=== PATIENT | female | born 1960 | race Caucasian/White ===

== ENCOUNTER 2025-02-02 15:37 | Inpatient (IN) | payer OTHER, SELFPAY ==
[2025-02-02 15:47] VITALS: BP 152/90; PULSE 79; RESP 20; TEMP 36.1; O2SAT 98; BMI 39.8
--- NOTE | 2025-02-02 16:51 | CRLHL7_ITS ---
For Patients: As a result of the Cures Act, medical imaging exams and procedure reports are released immediately into your electronic medical record. You may view this report before your referring provider. If you have questions, please contact your health care provider. INDICATION: Lower chest pain TECHNIQUE: Chest radiograph 1 view COMPARISON: None FINDINGS: Mediastinum: The mediastinum is normal in appearance. The cardiac silhouette is mildly enlarged but may be accentuated by the portable technique. Lung: Both lungs are unremarkable in appearance. No sign of pleural effusion seen. No pneumothorax is identified. Bone and Soft tissue: Unremarkable for age. IMPRESSION: 1. The cardiac silhouette is mildly enlarged but may be accentuated by the portable technique. Dictated by Jose Weller MD @ 02/02/2025 6:53:51 PM Dictated by: Jose Weller MD @ 02/02/2025 18:53:53 (Electronically Signed)
--- NOTE | 2025-02-02 16:56 | ED.GENADULT ---
HPI - General Adult General Date Seen: 02/02/25 Chief complaint: Abdominal Pain Stated complaint: Back pain, abdominal pain and burning sensation Time Seen by Provider: 02/02/25 16:36 History of Present Illness HPI narrative: Patient is a 64-year-old woman here for evaluation of an episode of epigastric pain/heartburn. She had eaten lunch just previous to that, she had a hard boiled egg, some cheese and a pickle. She says she developed hot flashes, which she remembers having when she went through menopause but has not had a lot of trouble with them more recently. She had this sharp pain in her epigastrium associated with a sensation of heartburn which lasted maybe a minute or so and then resolved. She said she did have a couple of recurrences which were mild but does not have any symptoms right now. She does have a history of problems with heartburn last year but she felt like things got better when she stopped eating tomatoes. She has had a little bit more trouble this summer but not significant. She has not had any exertional chest symptoms of any kind. She felt a little bit nauseated when she had this episode but no significant shortness of breath, no lightheadedness or syncope. She has otherwise been feeling well. She has not been to a doctor since 2017, she does not like to take medicines, was careful to tell is that she refuses any vaccinations. She does not smoke or drink. She does note that she takes a kelp supplement because she thought perhaps her thyroid was out of whack, she has not ever had thyroid studies checked however. Related Data Home Medications ?Medication ?Instructions ?Recorded ?Confirmed No Known Home Medications 02/02/25 02/02/25 Allergies Allergy/AdvReac Type Severity Reaction Status Date / Time No Known Drug Allergies Allergy Verified 02/02/25 20:32 Review of Systems Status of ROS: Reports: 10 or more systems reviewed and unremarkable except as noted in History and below PFSH PFS Social History Smoking Status: Never smoker How often do you have a drink containing alcohol: never AUDIT-C Alcohol total score: 0 Non-prescribed substance use: denies use Exam Narrative: Exam Narrative: Vital signs reviewed In general, alert, nontoxic med age woman. She is breathing easily. Head: Normocephalic, atraumatic. Eyes: Sclera clear. Pupils equal and reactive. ENT: Mucous membranes moist. Neck: Supple without adenopathy. Heart: Regular rate and rhythm without murmur. Lungs: Clear. No increased work of breathing, crackles or wheezes. Abdomen: Abdomen is soft, nondistended. She has a little bit of epigastric tenderness, a little bit of upper abdominal tenderness in general left greater than right. No rebound guarding or rigidity. Extremities: Well perfused, pulses intact. No significant edema. Neurologic: Alert, conversant. Speech fluent, face symmetric. Moves all extremities equally. Skin: Warm, dry well perfused. Affect: Normal. Const: Vital Signs, click to edit/add: Vital Signs - 24 hr 02/02/25 15:47 02/02/25 20:40 Temperature 96.9 F L 97.2 F L Pulse Rate [Pulse Oximeter] 79 70 Respiratory Rate 20 20 Blood Pressure [Ri ght Upper Arm] 152/90 H 160/97 H Pulse Oximetry 98 99 Oxygen Delivery Me thod Room Air Room Air Course Course ED Course: Patient presents with a brief episode of epigastric pain and a sensation of heartburn, this was self limited and is now gone. Somewhat concerning as she does not relate your over go to the doctor, has not sought care for anything in 8 years. However, exam is benign at this time, certainly no significant abdominal findings. Diagnostic considerations would include biliary colic, cholecystitis, pancreatitis, gastric ulcer or reflux, esophageal spasm, pulmonary embolism, acute coronary syndrome or angina, among others. Dissection seems less likely given the brief nature and resolution of symptoms. Blood pressure is minimally elevated here at 152/90. Other vital signs are normal. Laboratory evaluation here was most notable for elevated transaminases with an AST of 293 and an ALT of 153. Her other LFTs were normal. Troponin is negative, EKG by my review showed a sinus rhythm, ventricular rate of 71, no acute ST segment changes. No S1 Q 3 T3. Troponin is negative. D-dimer was minimally elevated at .81, however of her workup 1 along my suspicion for PE decreased as we found other abnormalities making other diagnoses more likely. I did a chest x-ray, by my review this is negative for any acute findings. Based on the LFTs, I recommended to her that we do an ultrasound to evaluate for possible gallbladder findings. She does take this can help supplement which can be associated with some liver toxicity but in the absence of any other findings suggestive of toxicity, I recommended that we evaluate her gallbladder. Ultrasound was read by Radiology as somewhat indeterminate, they felt that there was an area where the gallbladder wall might be thick, no obvious stones and she did not have a sonographic Montesinos's. As a result they recommended CT scanning to get a better look. Discussed this with the patient and she agreed to proceed with that. An IV was placed and she had a CT scan of the abdomen with contrast. I reviewed these images. She has marked thickening of the gallbladder wall up to about 8 mm. Radiology read this as significant gallbladder wall edema, they do visualize a stone. They did not feel she had other significant findings on CT aside from a somewhat prominent uterus, recommending outpatient ultrasound to further evaluate. I discussed all these findings with her. I also discussed her case with Dr. Mata. Based on her marked gallbladder edema, she recommended admission to the hospital for antibiotics overnight and then Dr. Mata will see her in the morning. After discussion with the patient, she is willing to do that. She is not sure how she feels about surgery yet, but told her she can certainly discuss that with surgery tomorrow and that ultimately she is in charge of making that decision. I ordered Zosyn for her. I also reviewed with her that the CT scan showed some prominence of the uterus and that an outpatient ultrasound was recommended. She does have a primary care doctor, this person is up in [place] and she does not even know if they are still at that clinic as she has not been seen for many years. Discussed with her though that she will need to follow up with someone regarding the uterine findings to have a ultrasound set up. Plan will be to discuss with the overnight hospitalist for admission to the hospitalist service. Vital Signs Vital signs: Initial Vital Signs Temperature 96.9 F L 02/02/25 15:47 Temperature Source Temporal Artery Scan 02/02/25 15:47 Pulse Rate 79 02/02/25 15:47 Respiratory Rate 20 02/02/25 15:47 Blood Pressure 152/90 H 02/02/25 15:47 Blood Pressure Mean 110 H 02/02/25 15:47 Blood Pressure Position Sitting 02/02/25 15:47 Pulse Oximetry 98 02/02/25 15:47 Oxygen Delivery Method Room Air 02/02/25 15:47 Vital Signs Temperature 96.9 F L 02/02/25 15:47 Pulse Rate 79 02/02/25 15:47 Respiratory Rate 20 02/02/25 15:47 Blood Pressure 152/90 H 02/02/25 15:47 Pulse Oximetry 98 02/02/25 15:47 Oxygen Delivery Method Room Air 02/02/25 15:47 Temperature 97.2 F L 02/02/25 20:40 Pulse Rate 70 02/02/25 20:40 Respiratory Rate 20 02/02/25 20:40 Blood Pressure 160/97 H 02/02/25 20:40 Pulse Oximetry 99 02/02/25 20:40 Oxygen Delivery Method Room Air 02/02/25 20:40 Medications Administered Medications: Discontinued Medications Generic Name Dose Route Start Last Admin Trade Name Freq PRN Reason Stop Dose Admin Sodium Chloride 500 mls @ 500 mls/hr 02/02/25 19:43 02/02/25 21:57 0.9 % Sodium Chloride 500 Ml IV 02/02/25 20:42 Infused .Q1H ONE Infusion Medical Decision Making Lab Data Labs: Lab Results 02/02/25 Range/Units 17:04 WBC 8.69 (4.50-11.00) K/uL RBC 4.58 (4.00-5.20) m/uL Hgb 13.4 (12.0-16.0) gm/dL Hct 40.7 (33.0-51.0) % MCV 89 (80-100) fL MCH 29 (26-34) pg MCHC 33 (32-36) gm/dL RDW Coeff of Paty 13.2 (11.5-15.5) % Plt Count 200 (140-440) K/uL Neut % (Auto) 80.6 H (42.0-72.0) % Lymph % (Auto) 12.5 L (20-44) % Boundary % (Auto) 6.1 (0.0-11.0) % Eos % (Auto) 0.5 (0.0-7.0) % Baso % (Auto) 0.2 (0.0-3.0) % Neut # (Auto) 7.00 (1.7-7.0) K/uL Lymph # (Auto) 1.10 (0.90-2.90) K/uL Boundary # (Auto) 0.50 (0.00-0.90) K/UL Eos # (Auto) 0.04 (0.00-0.50) K/uL Baso # (Auto) 0.02 (0.00-0.30) K/uL Abs Immat Gran (auto) 0.01 (0.00-0.30) K/uL Imm/Tot Granulo (auto) 0.1 % D-Dimer Quant (PE/DVT) 0.81 H (0.00-0.50) ug/ml Sodium 140 (135-149) mmol/L Potassium 4.4 (3.6-5.1) mmol/L Chloride 106 (96-114) mmol/L Carbon Dioxide 27 (20-32) mmol/L Anion Gap 7 (7-15) mEq/L BUN 17 (7-30) mg/dL Creatinine 0.7 (0.5-1.5) mg/dL Estimated Creat Clear 58.84 Estimated GFR 98 ml/min Glucose 121 H (60-115) mg/dL Calcium 10.2 (8.4-10.6) mg/dL Total Bilirubin 1.1 (0.1-1.5) mg/dL Direct Bilirubin 0.5 (0.0-0.5) mg/dL AST 293 H (12-35) U/L ALT 153 H (4-35) U/L Alkaline Phosphatase 98 (40-150) U/L Troponin I < 0.01 (0.01-0.04) ng/mL Total Protein 7.4 (6.0-8.3) g/dL Albumin 4.7 (3.3-5.0) g/dL Lipase 99 (23-300) U/L TSH 1.050 (0.270-4.200) uIU/mL Discharge Plan Discharge Clinical Impression: Cholecystitis Patient Disposition: Admitted As Observation Condition: Stable
[2025-02-02 17:09] LABS: Hematocrit 40.7 % (33.0-51.0); Hemoglobin* 13.4 gm/dL (12.0-16.0); Immature Granulocytes Abs Auto 0.01 K/uL (0.00-0.30); Immature Granulocytes Pct Auto 0.1 %; Mean Corpuscular HGB Conc 33 gm/dL (32-36); Mean Corpuscular Hemoglobin 29 pg (26-34); Mean Corpuscular Volume 89 fL (80-100); RDW Coefficient of Variation % 13.2 % (11.5-15.5); Red Blood Count 4.58 m/uL (4.00-5.20); White Blood Count* 8.69 K/uL (4.50-11.00)
[2025-02-02 17:16] LABS: Lymphocytes Absolute Auto 1.10 K/uL (0.90-2.90); Slide Review Reflex No
[2025-02-02 17:25] LABS: Albumin* 4.7 g/dL (3.3-5.0); Chloride* 106 mmol/L (96-114); Potassium* 4.4 mmol/L (3.6-5.1); Sodium* 140 mmol/L (135-149)
[2025-02-02 17:27] LABS: Alanine Aminotransferase* 153 U/L (4-35); Aspartate Amino Transferase* 293 U/L (12-35); Blood Urea Nitrogen* 17 mg/dL (7-30); Creatinine* 0.7 mg/dL (0.5-1.5); Est. Creatinine Clearance* 58.84; Estimated Glomerular Filt Rate 98 ml/min
[2025-02-02 17:28] LABS: Alkaline Phosphatase* 98 U/L (40-150); Anion Gap 7 mEq/L (7-15); Bilirubin Direct* 0.5 mg/dL (0.0-0.5); Bilirubin Total* 1.1 mg/dL (0.1-1.5); Calcium* 10.2 mg/dL (8.4-10.6); Carbon Dioxide* 27 mmol/L (20-32); D Dimer Quantitative* 0.81 ug/ml (0.00-0.50); Glucose* 121 mg/dL (60-115); Total Protein* 7.4 g/dL (6.0-8.3)
[2025-02-02 18:01] LABS: TSH With Reflex to FT4* 1.050 uIU/mL (0.270-4.200)
--- NOTE | 2025-02-02 18:11 | CRLHL7_ITS ---
For Patients: As a result of the Century Cures Act, medical imaging exams and procedure reports are released immediately into your electronic medical record. You may view this report before your referring provider. If you have questions, please contact your health care provider. INDICATION: Epigastric pain. Elevated liver function tests. TECHNIQUE: Ultrasound abdomen limited. Sonographic images of the right upper quadrant were obtained using conklin-scale and color Doppler images. COMPARISON: None. FINDINGS: Liver: The liver is grossly normal in size, echotexture and echogenicity. Some of the images demonstrate possible surface nodularity which could reflect underlying cirrhosis. No definite liver lesion. Antegrade flow within the visualized main portal vein. Gallbladder: The gallbladder is partially obscured and partially distended. The patient is reportedly not NPO. There is some thickening of the anterior wall of the gallbladder with shadowing. The gallbladder wall could measure 10 millimeters. No definite stone. Reportedly negative sonographic Montesinos sign as per the performing keno terminal operator. Common bile duct: 4 mm. Pancreas: Unremarkable. Right kidney: Normal in size. Normal echotexture and cortex. No suspicious masses, stones, or hydronephrosis. Vasculature: Proximal abdominal aorta: Normal in caliber. IVC: Patent. Main portal vein: Patent. Ascites: None visualized. IMPRESSION: 1. The patient was reportedly not NPO for the examination. This limits evaluation of the gallbladder. Poorly visualized gallbladder with evidence of possible significant abnormal thickening. No sonographic Montesinos`s sign to suggest acute cholecystitis. A follow-up CT of the abdomen and pelvis may be performed to better evaluate the findings. 2. Possible liver surface nodularity on some of the images. This could reflect underlying cirrhosis. Clinical correlation is recommended. Dictated by Kenrick Duggan MD @ 02/02/2025 7:32:06 PM (Electronically Signed)
--- NOTE | 2025-02-02 19:43 | CRLHL7_ITS ---
For Patients: As a result of the Century Cures Act, medical imaging exams and procedure reports are released immediately into your electronic medical record. You may view this report before your referring provider. If you have questions, please contact your health care provider. INDICATION: Abnormal gallbladder on ultrasound. Elevated liver function tests. TECHNIQUE: CT abdomen and pelvis acquired with 129 cc Omnipaque 350 IV contrast. COMPARISON: Ultrasound on the same day. FINDINGS: Visualized lung bases are clear. The liver is grossly in normal size. No definite liver lesion is seen. The gallbladder is partially distended. There is evidence of significant gallbladder wall edema. Apparent stone is present. No free air or organized drainable fluid collection. No gross biliary ductal dilatation. The spleen is normal in size. A 9 millimeter hyperdense lesion within the spleen is too small to further characterize (27). This likely represents a hemangioma. The pancreas is unremarkable. The adrenal glands are normal. The kidneys are unremarkable, no hydronephrosis. The urinary bladder is partially distended mild thickening, likely due to under distention. The colon is unremarkable. Nondilated partially obscured appendix. The small bowel is unremarkable. The stomach is partially distended. No free air. No ascites. Subcentimeter retroperitoneal lymph nodes are indeterminate. Prominent inguinal lymph nodes are also noted. Prominent uterine endometrium is noted. Portal vein is patent. Aorta is normal in caliber. Bone windows demonstrate no suspicious lytic or sclerotic lesion. No fracture. IMPRESSION: 1. Partially distended gallbladder with evidence of severe gallbladder wall edema. This may represent cholecystitis. Recommend correlation with right upper quadrant pain and tenderness on examination. Follow-up HIDA scan may be performed for further evaluation. 2. Prominent uterine endometrium. Follow-up nonemergent outpatient pelvic ultrasound is recommended to evaluate for possible abnormal thickening. Please note that all CT scans at this facility use dose modulation, iterative reconstruction, and/or weight-based dosing when appropriate to reduce radiation dose to as low as reasonably achievable. Dictated by Kenrick Duggan MD @ 02/02/2025 8:59:27 PM (Electronically Signed)
[2025-02-02] MEDS: 0.9 % SODIUM CHLORIDE 500 ML 500 ML IV (20:39)
[2025-02-02 20:40] VITALS: BP 160/97; PULSE 70; RESP 20; TEMP 36.2; O2SAT 99
[2025-02-02] MEDS: PIPERACILLIN/TAZOBACTAM 3.375 GM in 0.9 % SODIUM CHLORIDE Mini-bag 100 ML IVPB (23:48)
[2025-02-03 00:54] VITALS: BP 132/79; PULSE 63; RESP 20; O2SAT 97
[2025-02-03 01:03] VITALS: BP 128/107; PULSE 71; RESP 16; TEMP 36.7; O2SAT 98
[2025-02-03] MEDS: 5 % DEXTROSE/0.9% SOD CHLORIDE 1,000 ML 75 ML IV (02:11)
[2025-02-03] MEDS: PANTOPRAZOLE SODIUM 40 MG INJ IVP (02:13)
[2025-02-03 03:00] VITALS: BP 153/73; PULSE 62; RESP 16; TEMP 36.4; O2SAT 99
--- NOTE | 2025-02-03 05:13 | PC.NURSE ---
End of shift report: Pt admitted to the floor at 0103. VSS. Afebrile. On RA. Denies pain and nausea. Bowel sounds are active. Pt reports passing gas. Pt is NPO. Pt is ind in room, call light within reach.?
--- NOTE | 2025-02-03 05:14 | W.PM.TELEH&P ---
Telehealth- H&P: HPI History of Present Illness Time Seen by Provider: 01:20 Date Seen: 02/03/25 Chief complaint: Back pain, abdominal pain and burning sensation Narrative: Shena Faith is seen as an Interactive Telehealth visit. Shena Faith is a 64 year old female who is Here in the hospital with a chief complaint of acute abdominal pain at the right upper quadrant and epigastric area. History of present illness: Patient tells me that in the last few months she has been having some epigastric pain and feeling of fullness. She cannot related to food intake. Pain became more severe on the day of the admission and she became nauseated. She decided to come to the ER. She is not known to have any chronic medical illness but she says she may have elevated blood pressure. She has not seen her primary care doctor more than 2 years. She does appreciate using supplements and natural substances to help manage some of her physical ailments. Tonight when she came to the ER she was evaluated. While in the ER she was found to have inflamed gallbladder with gallstones. She was given IV Rocephin. She was also started on some IV fluids. For pain she will receive Dilaudid. On the rest of the lab test WBC was normal but transaminases were elevated. On talking to her at the bedside she was awake and alert. I told her our plan to admit her, keep her n.p.o., refer her to the general surgeon who most likely will recommend cholecystectomy, and to monitor her blood pressure and continue her on antibiotics. She was agreeable with this plan. During this time she told me that she may have elevated blood pressure. But she is not known to have diabetes. She has never had a heart attack and she has never had a stroke. She does not take any prescription medications. Review of systems: In the last few days she has had no fever except that related to this cholecystitis, may have had some chills because of this, no headache, no dizziness, no loss of consciousness, no runny nose, no sore throat, no postnasal drip, no cough, no phlegm, no shortness of breath at rest or with exertion, no pain with urination, no blood in the stool, no blood in the urine, no skin rash no skin ulcers. Past medical history was reviewed 1. She may have elevated blood pressure she has not been to a doctor's office in 3 years. Personal social history: Patient is , she lives with her and her children. 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 She does not smoke. She does not drink alcoholic beverages. She does not use prohibited drugs. She does use homeopathic drugs made from natural plants. Family medical history was reviewed CODE STATUS: As discussed with her she wants to be full code. Telehealth visit: Today's history and physical is via interactive telehealth by Shae Navarro MD. The patient is located [facility]. Physician is located at [facility]. Nursing staff assisted in the patient's exam. The visit being done today meets criteria for a telehealth visit and the patient or patient's parent/guardian is aware the visit is a telehealth visit. Camera start time 11902-03-2025 Camera end time 14902-03-2025 [facility] Social History What is your current living situation?: I presently have a place to live Problems where you live: no known problems Problems where you live details: n/a In the past 12 months, utilities in danger of being shut off: no In past 12 months, lack of transportation kept you from medical appts, meetings, work, or getting things needed for daily living: no In the past 12 mos, have been you worried that your food would run out before you had money to buy more?: never true In the past 12 mos, the food you bought just didn't last and you didn't have money to buy more?: never true Highest level of school completed/degree received: high school graduate Smoking Status: Never smoker Do you use any of these nicotine containing products: None Second hand tobacco smoke exposure: No How often do you have a drink containing alcohol: never How often do you have six or more drinks on one occasion: Never AUDIT-C Alcohol total score: 0 Non-prescribed substance use: denies use Caffeine: Yes How often does anyone, including family, friends and others, physically hurt you: never How often does anyone, including family, friends and others, insult or talk down to you: never How often does anyone, including family, friends and others, threaten you with harm: never How often does anyone, including family, friends and others, scream or curse at you: never Meds Home Medications and Allergies Home Medications ?Medication ?Instructions ?Recorded ?Confirmed ?Type No Known Home Medications 02/02/25 02/02/25 History Allergies Allergy/AdvReac Type Severity Reaction Status Date / Time No Known Drug Allergies Allergy Verified 02/02/25 20:32 Exam Narrative Exam Narrative: Telehealth visit: Today's history and physical is via interactive telehealth by Shae Navarro MD. The patient is located [facility]. Physician is located at [facility]. Nursing staff assisted in the patient's exam. The visit being done today meets criteria for a telehealth visit and the patient or patient's parent/guardian is aware the visit is a telehealth visit. Camera start time 11902-03-2025 Camera end time 14902-03-2025 Physical Exam GENERAL: ?vital signs reviewed, well developed and nourished, Pain at the right upper quadrant and epigastric area is controlled at this time. HEENT: pupils are equal round and reactive to light, extraocular movements are grossly within normal limits and oral mucosa is moist. NECK: Supple without lymphadenopathy or thyromegaly according to nursing staff examination observation HEART: Regular rate and rhythm without any rubs, murmurs, or gallops. LUNGS: Clear to auscultation bilaterally with good air movement throughout ABDOMEN: Observation from nurse assisted exam, abdomen appears soft, nontender, and nondistended with Positive bowel sounds noted.At this time her abdominal pain is not too evident probably because she did receive some medications in the ER. EXTREMITIES: Strength and sensation is observed to be grossly within normal limits in the upper and lower extremities.? No focal strength deficit is observed. SKIN:? Observed warm and dry with color normal Const Vital Signs, click to edit/add: Vital Signs - 24 hr 02/02/25 15:47 02/02/25 20:40 02/03/25 00:54 Temperature 96.9 F L 97.2 F L Pulse Rate [Left Pulse Oximeter] Pulse Rate [Pulse Oximeter] 79 70 63 Respiratory Rate 20 20 20 Blood Pressure [Right Arm] Blood Pressure [Right Upper Arm] 152/90 H 160/97 H 132/79 Pulse Oximetry 98 99 97 Oxygen Delivery Method Room Air Room Air Room Air 02/03/25 01:03 02/03/25 01:03 02/03/25 03:00 Temperature 98.1 F 97.6 F Pulse Rate [Left Pulse Oximeter] 71 62 Pulse Rate [Pulse Oximeter] Respiratory Rate 16 16 16 Blood Pressure [Right Arm] 128/107 H 153/73 H Blood Pressure [Right Upper Arm] Pulse Oximetry 98 98 99 Oxygen Delivery Method Room Air Room Air Room Air Hospitalist - H&P: Result Labs Labs: Short CBC 02/02/25 Range/Units 17:04 WBC 8.69 (4.50-11.00) K/uL Hgb 13.4 (12.0-16.0) gm/dL Hct 40.7 (33.0-51.0) % Plt Count 200 (140-440) K/uL BMP 02/02/25 17:04 Sodium 140 Potassium 4.4 Chloride 106 Carbon Dioxide 27 BUN 17 Creatinine 0.7 Glucose 121 H Calcium 10.2 Cardiac Enzymes 02/02/25 Range/Units 17:04 Troponin I < 0.01 (0.01-0.04) ng/mL Liver Function 02/02/25 Range/Units 17:04 Total Bilirubin 1.1 (0.1-1.5) mg/dL Direct Bilirubin 0.5 (0.0-0.5) mg/dL AST 293 H (12-35) U/L ALT 153 H (4-35) U/L Alkaline Phosphatase 98 (40-150) U/L Albumin 4.7 (3.3-5.0) g/dL Assessment and Plan Assessment and plan (1) Acute cholecystitis due to biliary calculus: Status: Acute (2) Elevated BP without diagnosis of hypertension: Status: Acute Plan 1. Admit as inpatient 2. For pain she may have Dilaudid 3. Start on Protonix 4. Continue empiric antibiotics Zosyn 5. ER doctor spoke with general surgeon on-call and I put a consult in 6. Keep n.p.o. 7. Start D5 normal saline 75 mL/h while n.p.o. 8. Monitor blood pressure if needed beta-blockers may be ideal for her 9. CODE STATUS full code 10. DVT prophylaxis SCDs. Anticipating surgery no anticoagulants Telehealth visit: Today's history and physical is via interactive telehealth by Shae Navarro MD. The patient is located [facility]. Physician is located at [facility]. Nursing staff assisted in the patient's exam. The visit being done today meets criteria for a telehealth visit and the patient or patient's parent/guardian is aware the visit is a telehealth visit. Camera start time 11902-03-2025 Camera end time 14902-03-2025 Telehealth: Statement Statement Telehealth Visit: Today's History and Physical is provided via interactive telehealth by Shae Navarro MD.? Patient is located at [facility].? Provider is located at [facility].? Nursing staff assisted with the patient's exam. The visit being done today meets criteria for a telehealth visit and the patient or patient?s parent/guardian is aware the visit is a telehealth visit.
[2025-02-03] MEDS: PIPERACILLIN/TAZOBACTAM 3.375 GM in 0.9 % SODIUM CHLORIDE Mini-bag 100 ML IVPB (06:07)
[2025-02-03 08:00] VITALS: BP 144/84; PULSE 64; RESP 18; TEMP 36.4; O2SAT 99
--- NOTE | 2025-02-03 09:17 | P.GSCN_ITS ---
History of Present Illness Consult details Date Seen: 02/03/25 Consult date: 02/03/25 Narrative: Patient presented to the emergency department for persistent right-sided abdominal pain and epigastric discomfort. The pain started yesterday afternoon after eating. She has never had pain like this before. She does suffer from reflux, which she controls by avoiding tomatoes and other foods that trigger it. The pain did improve overnight and she notices only a dull ache on the right side. She has never had abdominal surgery before. Patient has not been to the doctor since 2017. Review of Systems Status of ROS: Reports: 10 or more systems reviewed and unremarkable except as noted in History and below [facility] Medical History (Updated 02/03/25 @ 09:03 by Kitty Stallworth RN) Cholecystitis ?K81.9 - Cholecystitis, unspecified (ICD-10) Acute cholecystitis due to biliary calculus ?K80.00 - Calculus of gallbladder with acute cholecystitis without obstruction (ICD-10) Elevated BP without diagnosis of hypertension ?R03.0 - Elevated blood-pressure reading, without diagnosis of hypertension (ICD-10) Social History What is your current living situation?: I presently have a place to live Problems where you live: no known problems Problems where you live details: n/a In the past 12 months, utilities in danger of being shut off: no In past 12 months, lack of transportation kept you from medical appts, meetings, work, or getting things needed for daily living: no In the past 12 mos, have been you worried that your food would run out before you had money to buy more?: never true In the past 12 mos, the food you bought just didn't last and you didn't have money to buy more?: never true Highest level of school completed/degree received: high school graduate Smoking Status: Never smoker Do you use any of these nicotine containing products: None Second hand tobacco smoke exposure: No How often do you have a drink containing alcohol: never How often do you have six or more drinks on one occasion: Never AUDIT-C Alcohol total score: 0 Non-prescribed substance use: denies use Caffeine: Yes How often does anyone, including family, friends and others, physically hurt you : never How often does anyone, including family, friends and others, insult or talk down to you: never How often does anyone, including family, friends and others, threaten you with harm: never How often does anyone, including family, friends and others, scream or curse at you: never Meds Home Medications and Allergies Home Medications ?Medication ?Instructions ?Recorded ?Confirmed ?Type No Known Home Medications 02/02/25 0703/02 History Allergies Allergy/AdvReac Type Severity Reaction Status Date / Time No Known Drug Allergies Allergy Verified 02/02/25 20:32 Exam Narrative: Exam Narrative: General: Alert and oriented, no acute distress Respiratory: Equal breath rise bilaterally, maintained on room air CV: Well perfused Abdomen: Soft, mild tenderness on the right side with deep palpation, no guarding or rebound. Const: Vital Signs, click to edit/add: Vital Signs - 24 hr 02/02/25 15:47 02/02/25 20:40 02/03/25 00:54 Temperature 96.9 F L 97.2 F L Pulse Rate [Left P ulse Oximeter] Pulse Rate [Pulse Oximeter] 79 70 63 Respiratory Rate 20 20 20 Blood Pressure [Ri ght Arm] Blood Pressure [Ri ght Upper Arm] 152/90 H 160/97 H 132/79 Pulse Oximetry 98 99 97 Oxygen Delivery Me thod Room Air Room Air Room Air 02/03/25 01:03 02/03/25 01:03 02/03/25 03:00 Temperature 98.1 F 97.6 F Pulse Rate [Left P ulse Oximeter] 71 62 Pulse Rate [Pulse Oximeter] Respiratory Rate 16 16 16 Blood Pressure [Ri ght Arm] 128/107 H 153/73 H Blood Pressure [Ri ght Upper Arm] Pulse Oximetry 98 98 99 Oxygen Delivery Me thod Room Air Room Air Room Air 02/03/25 08:00 Temperature 97.6 F Pulse Rate [Left P ulse Oximeter] 64 Pulse Rate [Pulse Oximeter] Respiratory Rate 18 Blood Pressure [Ri ght Arm] 144/84 H Blood Pressure [Ri ght Upper Arm] Pulse Oximetry 99 Oxygen Delivery Me thod Room Air Results Labs Labs: Abnormal lab results 02/02/25 Range/Units 17:04 Neut % (Auto) 80.6 H (42.0-72.0) % Lymph % (Auto) 12.5 L (20-44) % D-Dimer Quant (PE/DVT) 0.81 H (0.00-0.50) ug/ml Glucose 121 H (60-115) mg/dL AST 293 H (12-35) U/L ALT 153 H (4-35) U/L Diabetes panel 02/02/25 Range/Units 17:04 Sodium 140 (135-149) mmol/L Potassium 4.4 (3.6-5.1) mmol/L Chloride 106 (96-114) mmol/L Carbon Dioxide 27 (20-32) mmol/L BUN 17 (7-30) mg/dL Creatinine 0.7 (0.5-1.5) mg/dL Glucose 121 H (60-115) mg/dL Calcium 10.2 (8.4-10.6) mg/dL AST 293 H (12-35) U/L ALT 153 H (4-35) U/L Alkaline Phosphatase 98 (40-150) U/L Total Protein 7.4 (6.0-8.3) g/dL Albumin 4.7 (3.3-5.0) g/dL Thyroid panel 02/02/25 Range/Units 17:04 TSH 1.050 (0.270-4.200) uIU/mL Calcium panel 02/02/25 Range/Units 17:04 Calcium 10.2 (8.4-10.6) mg/dL Albumin 4.7 (3.3-5.0) g/dL Pituitary panel 02/02/25 Range/Units 17:04 Sodium 140 (135-149) mmol/L Potassium 4.4 (3.6-5.1) mmol/L Chloride 106 (96-114) mmol/L Carbon Dioxide 27 (20-32) mmol/L BUN 17 (7-30) mg/dL Creatinine 0.7 (0.5-1.5) mg/dL Glucose 121 H (60-115) mg/dL Calcium 10.2 (8.4-10.6) mg/dL TSH 1.050 (0.270-4.200) uIU/mL Adrenal panel 02/02/25 Range/Units 17:04 Sodium 140 (135-149) mmol/L Potassium 4.4 (3.6-5.1) mmol/L Chloride 106 (96-114) mmol/L Carbon Dioxide 27 (20-32) mmol/L BUN 17 (7-30) mg/dL Creatinine 0.7 (0.5-1.5) mg/dL Glucose 121 H (60-115) mg/dL Calcium 10.2 (8.4-10.6) mg/dL Total Bilirubin 1.1 (0.1-1.5) mg/dL AST 293 H (12-35) U/L ALT 153 H (4-35) U/L Alkaline Phosphatase 98 (40-150) U/L Total Protein 7.4 (6.0-8.3) g/dL Albumin 4.7 (3.3-5.0) g/dL All other labs normal. Imaging Abdomen CT scan report/results: report reviewed and image reviewed Abdominal ultrasound report/results: report reviewed and image reviewed Progress Note:A&P Assessment and plan (1) Cholecystitis: Status: Acute Assessment and Plan: Patient is a 64-year-old female who presents with epigastric and right-sided abdominal pain. Workup was obtained with no leukocytosis, LFT showing just mild elevation in transaminases. Normal bilirubin and alkaline phosphatase. Patient is mildly symptomatic this morning. On imaging ultrasound demonstrated a significant amount of sludge and partially contracted gallbladder. A CT scan was obtained which showed remarkable thickening and edema of the gallbladder wall. Given these imaging findings and patient with mild, but persistent symptoms I am recommending that we proceed to the operating room for a laparoscopic cholecystectomy. I had a detailed conversation with the patient regarding the diagnosis of acute cholecystitis. We discussed the treatment options including observation with d iet modification and laparoscopic cholecystectomy. We discussed the risks of surgery (including but not limited to) the risks of bleeding, infection, injury to other structures in the abdomen including bile duct injury, bile leak and conversion to an open operation. We discussed the possibility that the patient's pain not improve with surgery. We discussed the possibility of permanent post-operative diarrhea that may require medical management. Additionally, the conceivably of complications requiring additional surgery or further hospitalization were also discussed including the risks of [place], respiratory failure, stroke and blood clots. The patient voiced an understanding of our conversation, had the opportunity to ask questions, agreed to accept the risks of surgery and asked that we proceed with surgery. In talking with the OR we are unable to take the patient to the operating room today due to add on cases and emergent procedures. She is okay to discharge home and will have the patient check in to same-day surgery tomorrow for laparoscopic cholecystectomy. She was instructed to call or present to the emergency department with worsening abdominal pain not controlled with pain medicine, fever or chills.
--- NOTE | 2025-02-03 10:19 | NUTR.NU ---
Nutrition: Nutrition education initiated r/t daughter (Gabi) request due to patient discharging with surgery scheduled for tomorrow. Admit acute cholecystitis. Patient on her way out when I arrived. Provided brief verbal education related to low fat diet and answered patient questions. Handout provided including foods recommended, foods not recommended and sample 1 day menu. Contact information provided and encouraged patient to contact with questions.
--- NOTE | 2025-02-03 10:30 | PC.NURSE ---
Discharge: Patient pleasant and cooperative, A&O. VSS, afebrile. SpO2 maintained above 90% on RA. Patient denies pain this shift. Independent in room. IV removed with tip intact. Discharge instructions provided, all questions answered. Discharged to home.
--- NOTE | 2025-02-03 13:46 | P.DS_ITS ---
DS: Providers Provider Date Seen: 02/03/25 Date of admission: 02/03/25 00:57 Primary care physician: Not a Local Provider Admitting Clinician: Shae Navarro MD Consults: 02/03/25 07:00 Consult to Physician [CONS] Routine Comment: Consulting Provider: General Surgery, [facility] Has provider been notified: No Attending Physician on discharge: Shae Navarro MD DS: Summary Hospital Course Hospital Course: Patient was admitted from the emergency department with clinical workup concerning for acute cholecystitis. Imaging demonstrated significant gallbladder wall thickening and edema. Overnight her pain improved, with only mild right- sided tenderness on deep palpation. She tolerated a diet this morning without nausea, vomiting or worsening of her pain. She was discharged to home with plans for a laparoscopic cholecystectomy 02/04/2025. At the time of discharge she was tolerating a regular diet, ambulating independently and pain was well controlled. Time Spent with Patient Time attestation: Total time spent providing and/or coordinating discharge services: Exam Narrative: Exam Narrative: Please see consultation from same date Const: Vital Signs, click to edit/add: Vital Signs - 24 hr 02/02/25 15:47 02/02/25 20:40 02/03/25 00:54 Temperature 96.9 F L 97.2 F L Pulse Rate [Left P ulse Oximeter] Pulse Rate [Pulse Oximeter] 79 70 63 Respiratory Rate 20 20 20 Blood Pressure [Ri ght Arm] Blood Pressure [Ri ght Upper Arm] 152/90 H 160/97 H 132/79 Pulse Oximetry 98 99 97 Oxygen Delivery Fl thod Room Air Room Air Room Air 02/03/25 01:03 02/03/25 01:03 02/03/25 03:00 Temperature 98.1 F 97.6 F Pulse Rate [Left P ulse Oximeter] 71 62 Pulse Rate [Pulse Oximeter] Respiratory Rate 16 16 16 Blood Pressure [Ri ght Arm] 128/107 H 153/73 H Blood Pressure [Ri ght Upper Arm] Pulse Oximetry 98 98 99 Oxygen Delivery Fl thod Room Air Room Air Room Air 02/03/25 08:00 02/03/25 08:00 Temperature 97.6 F Pulse Rate [Left P ulse Oximeter] 64 64 Pulse Rate [Pulse Oximeter] Respiratory Rate 18 18 Blood Pressure [Ri ght Arm] 144/84 H Blood Pressure [Ri ght Upper Arm] Pulse Oximetry 99 Oxygen Delivery Me thod Room Air DS: Data Data Completed and Pending Labs on day of discharge: Labs from last 24 hours 02/02/25 17:04 WBC 8.69 RBC 4.58 Hgb 13.4 Hct 40.7 MCV 89 MCH 29 MCHC 33 RDW Coeff of Paty 13.2 Plt Count 200 Neut % (Auto) 80.6 H Lymph % (Auto) 12.5 L [place] % (Auto) 6.1 Eos % (Auto) 0.5 Baso % (Auto) 0.2 Neut # (Auto) 7.00 Lymph # (Auto) 1.10 [place] # (Auto) 0.50 Eos # (Auto) 0.04 Baso # (Auto) 0.02 Abs Immat Gran (auto) 0.01 Imm/Tot Granulo (auto) 0.1 D-Dimer Quant (PE/DVT) 0.81 H Sodium 140 Potassium 4.4 Chloride 106 Carbon Dioxide 27 Anion Gap 7 BUN 17 Creatinine 0.7 Estimated Creat Clear 58.84 Estimated GFR 98 Glucose 121 H Calcium 10.2 Total Bilirubin 1.1 Direct Bilirubin 0.5 AST 293 H ALT 153 H Alkaline Phosphatase 98 Troponin I < 0.01 Total Protein 7.4 Albumin 4.7 Lipase 99 TSH 1.050 Discharge Plan Discharge Disposition: Home, Self-Care Date of Admission: 02/03/25 00:57 Attending Provider on Discharge: Bella Mata Consulting Providers: Bella Mata Primary Care Provider: Provider,Not a Local Condition: Stable Anticipated Discharge Date/Time: 02/03/25 09:15 Discharge Medications: No Action No Known Home Medications Discharge Orders: Discharge Order (Routine); Ordered 02/03/25 Ordered By: Bella Mata Patient Education: Cholecystitis (GEN), Low Fat Diet (DC) Additional Instructions: Continue on a low-fat diet. You are scheduled for surgery to remove her gallbladder on 02/04/2025. Please make sure to not eat or drink anything at least 8 hours before the procedure. Call with any questions or concerns. Activity Level: Activity as Tolerated Discharge Diet: Low Fat/Low Cholesterol Follow Up Appointments: Provider,Not a Local [Primary Care Provider, Family Practice] Forms: [employer] Info Instructions
== END 2025-02-03 10:15 | disposition home or self-care (01) | DRG 446 ==
LOC: ED 23:32 → MEDSURG 02-03 07:57
PROVIDERS: Admitting Provider Hospitalist; Emergency Provider Emergency Medicine; Visit Provider Hospitalist
DX: K80.00 Calculus of gallbladder with acute cholecystitis without obstruction (principal); R03.0 Elevated blood-pressure reading, without diagnosis of hypertension; R07.89 Other chest pain; R74.01 Elevation of levels of liver transaminase levels
CPT/HCPCS: 36415; 71045; 74177; 76705; 80048; 80053; 80076; 83690; 84443; 84484; 85025; 85379; 93005; 99284; 99285; J2470; J2543; J7030; J7042; Q9967

== ENCOUNTER 2025-02-04 11:32 | Day surgery (SDC) | payer OTHER, SELFPAY ==
[2025-02-04] VITALS (12 sets, daily range): BP systolic 119–164; BP diastolic 66–106; PULSE 50–79; RESP 16–24; TEMP 36.1–36.7; O2SAT 93–97; BMI 39.8
[2025-02-04] MEDS: SODIUM CHLORIDE 0.9 % (FLUSH) 10 ML SYRINGE IVF (12:20)
[2025-02-04] MEDS: LACTATED RINGERS 1000 ML 1,000 ML 100 ML IV (12:20)
[2025-02-04] MEDS: PIPERACILLIN/TAZOBACTAM 3.375 GM INJ IVPB (13:15)
[2025-02-04] MEDS: BUPIVACAINE 0.25% 30 ML INJECTION (13:25)
--- NOTE | 2025-02-04 14:29 | P.GSOP_ITS ---
Operative Note Date of procedure: 02/04/25 Pre-op diagnosis: Acute cholecystitis Post-op diagnosis: Same Type of Procedure: Laparoscopic cholecystectomy Indications: Patient is a 64-year-old female who presented to the emergency department with clinical signs and symptoms consistent with acute cholecystitis. Risks and benefits of operative intervention were discussed at length with the patient. Risks included but was not limited to: Bleeding, infection, risk of damage to surrounding structures, possible need for additional procedures, [possible need to convert to an open operation] and postoperative complications such as pneumonia, pulmonary emboli or [place]. All questions and concerns were addressed with the patient agreeing to proceed. Procedure Description: After discussing the risks and benefits of the procedure, the patient signed informed consent.? The operative site was marked and the patient was brought to the operating room and placed on the operating table in supine position.? Care was taken to pad the patient's pressure points.?? The patient was then intubated by anesthesia.?? The operative site was then prepped and draped in the usual sterile fashion.? A time-out was then performed. Entrance to the abdomen was gained via a 5 mm Visiport in the left upper quad rant. The abdomen was insufflated and briefly surveyed for signs of injury. There was none. 11 mm umbilical port was placed as well as 2 working ports along the right costal margin. Patient was then placed in reverse Trendelenburg position with the right side up. The gallbladder fundus was grasped and retracted cephalad. The gallbladder itself was distended with a significant amount of edema within the gallbladder wall. A small amount of dissection was needed to free omental adhesions from the gallbladder. The infundibulum was grasped. A combination of hook cautery and blunt dissection was used to carefully dissect out the cystic duct and artery until they could clearly be seen entering the gallbladder without any intervening structures. The gallbladder was dissected off the cystic plate to achieve the critical view. Once this was achieved the cystic duct and artery were each clipped with 2 clips proximally and 1 clip distally and transected with the scissors. The gallbladder was then taken off of the liver bed. A small bleeding arterial vessel high on the gallbladder fossa was ligated with a single 5 mm clip for hemostasis. Once the gallbladder was completely off of the liver it was removed from the abdomen using an Endo-Catch bag. The gallbladder bed was surveyed for hemostasis, which was excellent. the ports were then removed under direct vision. The umbilical port fascia was closed with 0 Vicryl. The skin was closed with absorbable subcuticular suture. Instrument sponge and needle counts were correct at the end of the case. The patient was then woken and transferred to the PACU in stable condition. Findings: Distended gallbladder with edema of the wall. Anesthesia: GETA Surgeon: Bella Mata MD Estimated blood loss (mL): 5 Specimen: Gallbladder Condition: stable Disposition: PACU
--- NOTE | 2025-02-04 14:29 | W.PM.H&PU ---
History & Physical Update History & Physical Update H&P Reviewed and patient assessed: No changes noted
--- NOTE | 2025-02-04 14:35 | P.ANES_ITS ---
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
--- NOTE | 2025-02-04 14:35 | W.ANESCHARGE ---
Anesthesia Charges Start Date/Time Anesthesia Start Date: 02/04/25 Anesthesia Start Time: 12:58 Stop Date/Time Anesthesia Stop Date: 02/04/25 Anesthesia Stop Time: 14:34 Coding CPT Codes CPT Codes: ANESTH SURG UPPER ABDOMEN - 47432 ([id number]) P2 - PATIENT W/MILD SYST DISEASE, QZ - LATHE TURNER SVC W/O PCB DESIGNER BY
--- NOTE | 2025-02-04 14:42 | SUR.PHASEI ---
Patient awake and talking and asking question. Denies pain or nausea at this time.
--- NOTE | 2025-02-04 14:57 | SUR.PHASEI ---
Patient meets discharge criteria from PACU. She is comfortable and talking. States she is tired.
== END 2025-02-04 16:37 | disposition home or self-care (01) ==
PROVIDERS: Visit Provider Surgery
PROC: 0FT44ZZ Resection of Gallbladder, Percutaneous Endoscopic Approach (ICD-10-PCS; CPT 47562; principal; 2025-02-04 13:00)
DX: K80.12 Calculus of gallbladder with acute and chronic cholecystitis without obstruction (principal)
CPT/HCPCS: 47562; 00790; 88304; J0330; J0665; J1100; J1171; J1885; J2250; J2405; J2543; J2704; J2710; J3010; J3490; J7120